=== PATIENT | female | born 1960 | race Caucasian/White ===

== ENCOUNTER 2018-08-09 11:49 | Emergency (ER) | payer BC ==
[~2018-08-09] VITALS: Ht 165.1 cm; Wt 80.3 kg
[~2018-08-09 11:49] MED LIST: ADULT LOW DOSE81 MG PO; CYMBALTA30 MG PO; FUROSEMIDE20 MG PO; HYDROCODON-ACE1 EA15 PO; MIRALAX PO; PREVACID15 M1 PO; STOOL SOFTENER100 M1 PO
--- OUTSIDE RECORDS SUMMARY | 2018-08-09 11:53 | XMS REPORT | Summary of Care ---
Author Author [facility] Address [address] [place] [address] Phone Unavailable Care Team Providers Care Overhead Crane Inspector Name Role Phone PASTORA Lima, RADHA Unavailable Unavailable ALBERT Stephens, DODIE Unavailable Yandel BRIONES MD [place], AGATHA GAMBINO Unavailable Unavailable LIZBET Stephens, ERICA Unavailable Unavailable ANSELMO Stephens, AGATHA Humphries Unavailable Unavailable Unavailable Functional Status Name Dates Details Functional status health issues are not documented Status: Name Dates Details Cognitive status health issues are not documented Status: Problems Name Dates Details Excessive thirst (783.5, R63.1) Status: Active Gastric ulcer (531.90, K25.9) Status: Active Irritable bowel syndrome (564.1, K58.9) Status: Active Neuritis (729.2, M79.2) Status: Active Dysfunction of Eustachian tube, unspecified laterality (381.81, H69.80) Status: Active Elevated liver enzymes (790.5, R74.8) Status: Active Allergic rhinitis (477.9, J30.9) Status: Active Knee pain (719.46, M25.569) Status: Active Influenza vaccine needed (V04.81, Z23) Status: Active It band syndrome, right (728.89, M76.31) Status: Active Primary osteoarthritis of right knee (715.16, M17.11) Status: Active Hematuria (599.70, R31.9) Status: Active Tear of medial meniscus of knee, right, initial encounter Status: Active Radiculitis, thoracic (724.4, M54.14) Status: Active Need for influenza vaccination (V04.81, Z23) Status: Active Fatty infiltration of liver (571.8, K76.0) Status: Active Mild persistent extrinsic asthma with exacerbation (493.02, J45.31) Status: Active Common cold (460, J00) Status: Active Chest pain (786.50, R07.9) Status: Active Plantar fasciitis of left foot (728.71, M72.2) Status: Active Allergic rhinitis, seasonal (477.9, J30.2) Status: Active Asthma with bronchitis (493.90, J45.909) Status: Active Essential (primary) hypertension (401.9, I10) Status: Active BMI 39.0-39.9,adult (V85.39, Z68.39) Status: Active Tachycardia (785.0, R00.0) Status: Active Obstructive sleep apnea on CPAP (327.23, G47.33) Status: Active Daytime hypersomnia (780.54, G47.19) Status: Active Recurrent UTI (599.0, N39.0) Status: Active Other tear of medial meniscus, current injury, left knee, initial encounter (836.0, S83.242A) Status: Active Complex tear of lateral meniscus, current injury, left knee, initial encounter (836.1, S83.272A) Status: Active Recurrent low back pain (724.2, M54.5) Status: Active Symptoms of upper respiratory infection (URI) (786.09, R09.89) Status: Active Medications Name Dates Details Stool Softener TABS TWICE DAILY Active Hydrocodone-Ibuprofen 7.5-200 MG Oral Tablet TAKE 1 TABLET EVERY 4 TO 6 HOURS NEEDED FOR PAIN. * Refills: 0 * Start : 30-Nov-2016 Active Bariatric Fusion CHEW BARIATRIC MULTI VITAMIIN DAILY * Refills: 0 Active Vitamin B-12 1000 MCG Oral Tablet TAKE 1 TABLET DAILY * Refills: 0 Active Iron TABS 500 MG DIALY * Refills: 0 Active Azithromycin 250 MG Oral Tablet TAKE 2 TABLETS ON DAY 1 THEN TAKE 1 TABLET A DAY FOR 4 DAYS. * Quantity: 6 Refills: 0 RADHA GUILLORY N.P. * Start : 03-Jul-2017 Active Vitamin D3 1000 UNIT Oral Capsule TAKE DIRECTED. * Refills: 0 * Start : 30-Nov-2016 Active [place] Thyroid 60 MG Oral Tablet TAKE 1 TABLET DAILY. * Refills: 0 Active Lyrica 50 MG Oral Capsule TAKE 1 CAPSULE DAILY. * Refills: 0 DODIE PRICE M.D. * Start : 24-Jan-2016 Active Pramipexole Dihydrochloride 0.25 MG Oral Tablet TAKE 2 TABLET BEDTIME * Refills: 0 Active Cymbalta 30 MG Oral Capsule Delayed Release Particles TAKE 1 CAPSULE DAILY. * Refills: 0 Active Allergies and Adverse Reactions Name Dates Details Bentyl CAPS (Allergy) Status: Active Keflex TABS (Allergy) Status: Active Penicillins (Allergy) Status: Active TETANUS (Allergy) Status: Active Adhesive Tape (Allergy) Status: Active Past Medical History Name Dates Details History of degenerative disc disease (V13.59, Z87.39) Status: Resolved History of edema (V13.89, Z87.898) Status: Resolved History of High blood pressure (401.9, I10) Status: Resolved History of Menstrual migraine with status migrainosus, not intractable (346.42, G43.821) Status: Resolved History of Migraine (346.90, G43.909) Status: Resolved History of neuropathy (V12.49, Z86.69) Status: Resolved Procedures Procedure Dates Details History of Tonsillectomy With Adenoidectomy Completed History of Appendectomy Completed History of Hysterectomy Completed History of Cholecystectomy Completed History of knee surgery Completed History of sleeve gastrectomy Completed 10-Apr-2017 Immunization Name Dates Details Fluzone INJ Lot #: [id number] on: 14-Apr-2015 Fluzone Quadrivalent 0.5 ML Intramuscular Suspension Lot #: [id number] on: 24-Jan-2016 Family History Name Dates Details Family history of Ovarian Cancer (V16.41) Status: Active Social History Name Dates Details - Status: Name Dates Details Former smoker Vital Signs Date Test Result Details No Known Vitals to report Results Date Description Value Details Results not documented Plan of Care Name Dates Details Planned Observations Planned Goals not documented Instructions Name Dates Details Instructions not documented Encounters Appointment; CARLA WILSON M.D. Encounter Diagnosis: Problem not documented On: 12-Aug-2015 9:45 Appointment; CARLA WILSON M.D. Encounter Diagnosis: Problem not documented On: 19-Aug-2015 11:30 Appointment; CARLA WILSON M.D. Encounter Diagnosis: Problem not documented On: 25-Aug-2015 9:00 Appointment; CARLA WILSON M.D. Encounter Diagnosis: Problem not documented On: 31-Aug-2015 13:00 Appointment; CARLA WILSON M.D. Encounter Diagnosis: Problem not documented On: 07-Sep-2015 13:15 Appointment; ERIC BOWEN P.A. Encounter Diagnosis: Problem not documented On: 14-Sep-2015 16:00 Appointment; CARLA WILSON M.D. Encounter Diagnosis: Problem not documented On: 21-Sep-2015 13:15 Appointment; CARLA WILSON M.D. Encounter Diagnosis: Problem not documented On: 19-Oct-2015 13:15 Appointment; ERIC OBWEN P.A. Encounter Diagnosis: Problem not documented On: 30-Nov-2015 15:15 Appointment; CARLA WILSON M.D. Encounter Diagnosis: Problem not documented On: 14-Dec-2015 15:30 Appointment; DODIE PRICE M.D. Encounter Diagnosis: Problem not documented On: 23-Dec-2015 14:00 Appointment; SHELBY DAI NP Encounter Diagnosis: Problem not documented On: 29-Dec-2015 16:30 Appointment; DODIE PRICE M.D. Encounter Diagnosis: Problem not documented On: 24-Jan-2016 13:30 Appointment; CARLA WILSON M.D. Encounter Diagnosis: Problem not documented On: 15-Feb-2016 13:00 Appointment; CARLA WILSON M.D. Encounter Diagnosis: Problem not documented On: 28-Feb-2016 7:00 Appointment; CARLA WILSON M.D. Encounter Diagnosis: Problem not documented On: 07-Mar-2016 9:15 Appointment; CARLA WILSON M.D. Encounter Diagnosis: Problem not documented On: 14-Mar-2016 9:30 Appointment; CARLA WILSON M.D. Encounter Diagnosis: Problem not documented On: 11-Apr-2016 9:45 Appointment; DODIE PRICE M.D. Encounter Diagnosis: Problem not documented On: 24-Apr-2016 13:45 Appointment; DODIE PRICE M.D. Encounter Diagnosis: Problem not documented On: 10-May-2016 11:30 Appointment; CARLA WILSON M.D. Encounter Diagnosis: Problem not documented On: 11-Jul-2016 9:45 Appointment; RADHA GUILLORY NP Encounter Diagnosis: Problem not documented On: 11-Aug-2016 12:30 Appointment; DODIE PRICE M.D. Encounter Diagnosis: Problem not documented On: 30-Oct-2016 16:00 Appointment; MCKENZIE ORELLANA M.D. Encounter Diagnosis: Problem not documented On: 30-Nov-2016 14:45 Appointment; RADHA GUILLORY NP Encounter Diagnosis: Problem not documented On: 03-Jul-2017 10:45
[2018-08-09] MEDS ORDERED: SODIUM CHLORIDE 0.9% 1000ML 1,000 ML IV STA (12:22)
[2018-08-09] MEDS ORDERED: ONDANSETRON HCL INJ 2MG/ML 2ML 2 MG/ML VIAL IV STA (12:22)
[2018-08-09] MEDS ORDERED: MORPHINE SULFATE INJ 4 MG/ML INJ 1ML IV STA (12:22)
--- NOTE | 2018-08-09 13:28 | NUR ---
1320- 20G IV LT AC 1LNS WO started Zofran 4mg IV given, Morphine pulled and will give once patinet in room Blood and Urine to lab
[2018-08-09 13:36] LABS: BASOPHILS # (AUTO) 0.1 (0.0-0.1); BASOPHILS % 0.9 % (0.0-1.0); EOSINOPHILS # (AUTO) 0.1 (0.0-0.4); EOSINOPHILS % 1.7 % (0.0-6.0); HEMATOCRIT 41.2 % (34.2-44.1); HEMOGLOBIN 13.6 g/dL (12.0-16.0); LYMPHOCYTES # (AUTO) 1.9 (1.0-3.2); LYMPHOCYTES % 29.3 % (18.0-39.1); MEAN CORPUSCULAR HEMOGLOBIN 29.1 pg (28-32); MEAN CORPUSCULAR VOLUME 88.2 fL (81-99); MONOCYTES # (AUTO) 0.4 (0.2-0.8); MONOCYTES % 6.5 % (4.4-11.3); NEUTROPHILS # (AUTO) 3.9 (2.1-6.9); NEUTROPHILS % 61.3 % (38.7-80.0); PLATELET COUNT 232 x10e3/uL (140-360); RED BLOOD COUNT 4.67 x10e6/uL (3.6-5.1); RED CELL DISTRIBUTION WIDTH 12.8 % (11.7-14.4)
[2018-08-09 13:46] LABS: CLARITY,URINE SL CLOUDY (CLEAR); COLOR,URINE YELLOW (YELLOW); LEUKOCYTE ESTERASE ,URINE TRACE (NEGATIVE); NITRITE,URINE NEGATIVE (NEGATIVE)
[2018-08-09 13:47] LABS: BILIRUBIN,URINE NEGATIVE (NEGATIVE); KETONES,URINE NEGATIVE (NEGATIVE); PROTEIN,URINE DIPSTICK NEGATIVE (NEGATIVE); URINE UROBILINOGEN 0.2 mg/dL (0.2 - 1)
[2018-08-09 13:51] LABS: BACTERIA,URINE MANY /HPF; EPITHELIAL CELLS,URINE MANY /LPF; WBC,URINE (MAN) 0-5 /HPF (0-5)
[2018-08-09 14:09] LABS: ALANINE AMINOTRANSFERASE 21 IU/L (0-55); ALBUMIN 3.7 g/dL (3.5-5.0); ALBUMIN/GLOBULIN RATIO 1.1 (0.8-2.0); ALKALINE PHOSPHATASE 60 IU/L (40-150); ANION GAP 11.4 mmol/L (8-16); BLOOD UREA NITROGEN 16 mg/dL (7-26); BUN/CREATININE RATIO 20 (6-25); CALCIUM 9.5 mg/dL (8.4-10.2); CARBON DIOXIDE 28 mmol/L (22-29); CHLORIDE 105 mmol/L (98-107); CREATININE, SERUM 0.81 mg/dL (0.57-1.11); EST GLOMERULAR FILTRATION RATE > 60 ML/MIN (60-); GLUCOSE 105 mg/dL (74-118); POTASSIUM 4.4 mmol/L (3.5-5.1); SODIUM 140 mmol/L (136-145)
[2018-08-09] MEDS ORDERED: IOPAMIDOL 370 MG/ML 200 ML INFUS..BTL INJ ONE (15:12)
[2018-08-09] MEDS ORDERED: SODIUM CHLORIDE 0.9% 50ML 50 ML ONE (15:12)
--- NOTE | 2018-08-09 15:33 | Diagnostic Imaging Report ---
EXAMINATION: CT of the abdomen and pelvis with contrast. TECHNIQUE: Spiral CT images of the abdomen and pelvis were performed from the lung bases to the lesser trochanters after the intravenous administration of 100 cc of Isovue 370 and the oral administration of water. Coronal and sagittal reformatted images were obtained. COMPARISON: CT abdomen and pelvis 06/18/2008 CLINICAL HISTORY:Right flank and right lower abdominal pain DISCUSSION: ABDOMEN/PELVIS: LOWER THORAX:Unremarkable. HEPATOBILIARY: Decreased attenuation of the hepatic parenchyma compared to the spleen, consistent with steatosis. No focal lesions. Stable mild prominence of the central intrahepatic bile ducts and moderate dilation of the common bile duct, which measures 1.1 cm at the alana hepatis. No radiopaque intraluminal filling defects. GALLBLADDER: Cholecystectomy clips. SPLEEN: No splenomegaly. PANCREAS: No focal masses or ductal dilatation. ADRENALS: No adrenal nodules. KIDNEYS/URETERS: No hydronephrosis, stones, or solid mass lesions. PELVIC ORGANS/BLADDER: Bladder is unremarkable. Uterus is absent. 1.9 cm fluid density lesion in the right ovary. Pelvic phleboliths. PERITONEUM/RETROPERITONEUM: No free air or fluid. LYMPH NODES: No intra-abdominal, retroperitoneal, pelvic or inguinal lymphadenopathy. VESSELS: The celiac trunk,superior and inferior mesenteric and bilateral renal arteries are patent The portal, superior mesenteric and splenic veins are patent. GI TRACT: No bowel dilation or evidence of obstruction. No pericolonic inflammatory changes. Specifically, no fat stranding is noted around the cecum or ascending colon. Postoperative changes in the stomach, with surgical sutures noted along the greater and lesser curvature. BONES AND SOFT TISSUE: No aggressive lytic lesions. Grade 1 anterolisthesis of L4 on L5, with suspected bilateral pars interarticularis defects. Small fat-containing umbilical hernia . Soft tissues are otherwise unremarkable. IMPRESSION: 1. No acute abdominopelvic abnormalities. Specifically, no acute abnormal findings in the right lower quadrant. 2. No renal, ureteral or bladder calculi. 3. Hepatic steatosis. No focal lesions. 4. Stable mild prominence of the central intrahepatic bile ducts and moderate dilation of the common bile duct, likely reflecting post cholecystectomy status. 5. 1.9 cm simple cyst in the right ovary. Signed by: Dr. Jere Negrete M.D. on 08/09/2018 3:30 PM
== END 2018-08-09 17:12 | disposition home or self-care (01) ==
LOC: ER 11:49
DX: N30.00 Acute cystitis without hematuria (principal); N83.291 Other ovarian cyst, right side; I10 Essential (primary) hypertension
CPT/HCPCS: 36415; 74177; 80053; 81001; 85025; 87086; 99284; J2405; J7030; Q9967; J2270

== ENCOUNTER 2020-06-06 15:46 | Emergency (ER) | payer BC ==
[~2020-06-06] VITALS: Ht 165.1 cm; Wt 85.7 kg
== END 2020-06-06 17:10 | disposition home or self-care (01) ==
LOC: ER 17:02
DX: U07.1 COVID-19 (principal); R06.02 Shortness of breath; R07.89 Other chest pain; R05 Cough; G62.9 Polyneuropathy, unspecified; K21.9 Gastro-esophageal reflux disease without esophagitis; Z98.84 Bariatric surgery status
CPT/HCPCS: 93005; 99282

== ENCOUNTER 2020-06-12 11:10 | Emergency (ER) | payer BC ==
[~2020-06-12] VITALS: Ht 165.1 cm; Wt 85.7 kg
== END 2020-06-12 11:36 | disposition home or self-care (01) ==
LOC: ER 11:29
DX: U07.1 COVID-19 (principal); Z88.1 Allergy status to other antibiotic agents; Z88.0 Allergy status to penicillin; Z88.7 Allergy status to serum and vaccine; Z88.8 Allergy status to other drugs, medicaments and biological substances
CPT/HCPCS: 99282

== ENCOUNTER → 2021-02-08 | Day surgery (SDC) | payer BC ==
[~2021-02-08] MED LIST changes: +ACETAMINOPHEN-1 EAC3 PO; +BUPIVACAINE 0.25% 30ML SDV ONE; +CLINDAMYCIN 600MG / 50ML 50 ML IV ONE; +LEVOTHYROXINE50 MCG PO; +LYRICA50 MG PO; +MIRAPEX0.25 MG PO; +MUPIROCIN 2% OINT 22 GM TUBE ONE; +VIT D3 PO
[2021-02-08 08:37] VITALS: BP 136/94
== END | disposition home or self-care (01) ==
LOC: OR 05:45 → EDSTATUS 07:00
PROVIDERS: ATTEND Plastic Surgery
DX: M65.341 Trigger finger, right ring finger (principal); G47.33 Obstructive sleep apnea (adult) (pediatric); J45.909 Unspecified asthma, uncomplicated; E03.9 Hypothyroidism, unspecified; K21.9 Gastro-esophageal reflux disease without esophagitis; K44.9 Diaphragmatic hernia without obstruction or gangrene; Z88.1 Allergy status to other antibiotic agents; Z88.0 Allergy status to penicillin; Z88.7 Allergy status to serum and vaccine; Z01.810 Encounter for preprocedural cardiovascular examination; Z01.812 Encounter for preprocedural laboratory examination; Z20.822 Contact with and (suspected) exposure to COVID-19; Z86.16 Personal history of COVID-19
CPT/HCPCS: 26055; 93005; U0002

== ENCOUNTER 2021-09-22 07:00 | Observation (INO) | payer BC ==
[2021-09-20 10:13] LABS: BASOPHILS # (AUTO) 0.1 (0.0-0.1); BASOPHILS % 1.2 % (0.0-1.0); EOSINOPHILS # (AUTO) 0.1 (0.0-0.4); EOSINOPHILS % 1.4 % (0.0-6.0); HEMOGLOBIN 13.6 g/dL (12.0-16.0); LYMPHOCYTES # (AUTO) 1.5 (1.0-3.2); LYMPHOCYTES % 30.2 % (18.0-39.1); MEAN CORPUSCULAR HEMOGLOBIN 29.8 pg (28-32); MEAN CORPUSCULAR HGB CONC 32.4 g/dL (31-35); MEAN CORPUSCULAR VOLUME 92.1 fL (81-99); MONOCYTES # (AUTO) 0.4 (0.2-0.8); MONOCYTES % 8.9 % (4.4-11.3); NEUTROPHILS # (AUTO) 2.9 (2.1-6.9); NEUTROPHILS % 58.1 % (38.7-80.0); PLATELET COUNT 202 x10e3/uL (140-360); RED BLOOD COUNT 4.56 x10e6/uL (3.6-5.1); RED CELL DISTRIBUTION WIDTH 13.1 % (11.7-14.4)
[2021-09-20 10:48] LABS: ANION GAP 8.1 mmol/L (8-16); CREATININE, SERUM 0.75 mg/dL (0.57-1.11); POTASSIUM 4.1 mmol/L (3.5-5.1)
[2021-09-20 10:50] LABS: INR 0.96; PROTHROMBIN TIME 13.7 seconds (11.9-14.5)
[~2021-09-22] VITALS: Ht 165.1 cm; Wt 98.0 kg
[~2021-09-22 07:00] MED LIST changes: -BUPIVACAINE 0.25% 30ML SDV ONE; -CLINDAMYCIN 600MG / 50ML 50 ML IV ONE; +LIDOCAINE 1% W/EPINEPHRINE 20 ML VIAL ONE; -MUPIROCIN 2% OINT 22 GM TUBE ONE; +NEURONTIN300 MG PO; +SODIUM CHLORIDE 0.9% 250ML 250 ML ONE; +THROMBIN FOR SOLN 5,000 UNIT VIAL ONE; +Vancomycin IV 1 GM VIAL ONE
[2021-09-22] MEDS ORDERED: ACETAMINOPHEN 1000 MG/100 ML 100 ML IV ONE (08:29)
[2021-09-22] MEDS ORDERED: HYDROCODON-ACE1 EA12 PO (09:12)
[2021-09-22] MEDS ORDERED: MAGNESIUM/ALUMINUM/SIMETHICONE 30 ML UDC PO PRN (09:15)
[2021-09-22] MEDS ORDERED: MORPHINE SULFATE 5 MG/ML VIAL IM PRN (09:15)
[2021-09-22] MEDS ORDERED: ONDANSETRON HCL INJ 2MG/ML 2ML 2 MG/ML VIAL IV PRN (09:15)
[2021-09-22] MEDS ORDERED: ACETAMINOPHEN 325 MG TAB PO PRN (09:15)
[2021-09-22] MEDS ORDERED: HYDROMORPHONE 2MG/ML 2 MG/ML ML IV PRN (09:15)
[2021-09-22] MEDS ORDERED: NON-FORMULARY MEDICATION (Lansoprazole (Prevacid) 15 MG) PO SCH (09:15)
[2021-09-22] MEDS ORDERED: ZOLPIDEM TARTRATE 5 MG TAB PO PRN (09:15)
[2021-09-22] MEDS ORDERED: PROMETHAZINE HCL (IM) 25 MG/ML VIAL IM PRN (09:15)
[2021-09-22] MEDS ORDERED: FENTANYL CITRATE/PF 100MCG/2 ML INJ ONE ×2 (09:28→12:56)
[2021-09-22] MEDS ORDERED: HYDROMORPHONE 1MG/1ML INJ ONE (10:25)
[2021-09-22] MEDS ORDERED: PANTOPRAZOLE SOD 40 MG TABEC PO PRN (11:00)
[2021-09-22] MEDS: LACTATED RINGER'S 1,000 ML IV SCH ×2 (11:35→17:35)
[2021-09-22 11:37] VITALS: BP 143/75
[2021-09-22] MEDS ORDERED: ONDANSETRON HCL INJ 2MG/ML 2ML 2 MG/ML VIAL ONE (12:18)
[2021-09-22] MEDS ORDERED: DESFLURANE 240 ML BTL INH ONE (12:18)
[2021-09-22] MEDS ORDERED: ROCURONIUM BROMIDE 10 MG/ML 5ML VIAL IV ONE (12:18)
[2021-09-22] MEDS ORDERED: NEOSTIGMINE 1 MG/ML 10ML VIAL ONE (12:18)
[2021-09-22] MEDS ORDERED: DEXAMETHASONE SOD PHOS INJ 4 MG/ML SDV ONE (12:18)
[2021-09-22] MEDS ORDERED: POVIDONE IODINE 0.05% 0.05 % ML PO ONE (12:18)
[2021-09-22] MEDS ORDERED: GLYCOPYRROLATE INJ 0.2 MG/ML VIAL ONE (12:18)
[2021-09-22] MEDS ORDERED: PROPOFOL IV EMULSION 10 MG/ML 20 ML VIAL ONE (12:18)
[2021-09-22] MEDS ORDERED: LIDOCAINE HCL 2% LOCAL INJ 5 ML SDV VIAL INJ ONE (12:18)
[2021-09-22] MEDS ORDERED: MIDAZOLAM HCL 2 MG/2 ML VIAL ONE (12:56)
[2021-09-22] MEDS ORDERED: Morphine 10mg syringe 10 MG/ML INJ ONE (12:56)
[2021-09-22] MEDS: OXYCODONE/ACETAMINOPHEN 5-325 1 EACH TABLET PO PRN ×2 (14:35→20:14)
[2021-09-22] MEDS: CARISOPRODOL 350 MG TAB PO PRN ×2 (14:35→20:14)
[2021-09-22 16:09] VITALS: BP 125/76
[2021-09-22] MEDS ORDERED: DOCUSATE SODIUM 100 MG PO SCH (17:00)
[2021-09-22] MEDS: DOCUSATE SODIUM 100 MG CAP PO SCH (17:19)
[2021-09-22] MEDS: Vancomycin IV 1 GM in SODIUM CHLORIDE 0.9% 250ML 250 ML IV SCH (17:19)
[2021-09-22 20:00] VITALS: BP 125/65
[2021-09-22 20:07] VITALS: BP 125/65
[2021-09-22] MEDS ORDERED: PRAMIPEXOLE DIHYDROCHLORIDE 0.25 MG TAB PO SCH (21:00)
[2021-09-23] MEDS: LACTATED RINGER'S 1,000 ML IV SCH (01:55)
[2021-09-23] MEDS: OXYCODONE/ACETAMINOPHEN 5-325 1 EACH TABLET PO PRN ×2 (02:10→06:08)
[2021-09-23] MEDS: CARISOPRODOL 350 MG TAB PO PRN ×2 (02:10→06:08)
[2021-09-23] MEDS: Vancomycin IV 1 GM in SODIUM CHLORIDE 0.9% 250ML 250 ML IV SCH (05:06)
[2021-09-23 05:37] VITALS: BP 115/82
[2021-09-23] MEDS ORDERED: LEVOTHYROXINE SODIUM 50 MCG TAB PO SCH (06:00)
[2021-09-23 08:00] VITALS: BP 114/63
[2021-09-23 08:10] VITALS: BP 114/62
[2021-09-23] MEDS ORDERED: GABAPENTIN 300 MG CAP PO SCH (09:00)
[2021-09-23] MEDS ORDERED: PREGABALIN 50 MG CAP PO SCH (09:00)
[2021-09-23] MEDS: DOCUSATE SODIUM 100 MG CAP PO SCH (09:07)
== END 2021-09-23 10:38 | disposition home or self-care (01) ==
LOC: OR 07:00 → PACU V 09:11 → MED/SURG 10:36
PROVIDERS: ADMIT Neurological Surgery; ATTEND Neurological Surgery
DX: M50.120 Mid-cervical disc disorder, unspecified level (principal); Z01.818 Encounter for other preprocedural examination; G47.33 Obstructive sleep apnea (adult) (pediatric); J45.909 Unspecified asthma, uncomplicated; E03.9 Hypothyroidism, unspecified; Z88.0 Allergy status to penicillin; M19.90 Unspecified osteoarthritis, unspecified site; Z88.1 Allergy status to other antibiotic agents; Z88.7 Allergy status to serum and vaccine; Z88.8 Allergy status to other drugs, medicaments and biological substances; Z20.822 Contact with and (suspected) exposure to COVID-19
CPT/HCPCS: 22551; 22552; 22845; 36415; 71046; 72040; 76000; 80048; 85025; 85610; 85730; 86850; 86900; 88304; 88311; 93005; C1713 ×6; C1763; G0378 ×2; J0131; J1100; J1170; J2001; J2250; J2270; J2405; J2704; J2710; J3010; J3370 ×2; J7050 ×2; J7121; U0002

== ENCOUNTER → 2021-10-20 | Outpatient (CLI) | payer BC ==
[~2021-10-20] MED LIST changes: +HYDROCODON-ACE1 EA12 PO; -LIDOCAINE 1% W/EPINEPHRINE 20 ML VIAL ONE; -SODIUM CHLORIDE 0.9% 250ML 250 ML ONE; -THROMBIN FOR SOLN 5,000 UNIT VIAL ONE; -Vancomycin IV 1 GM VIAL ONE
== END ==
LOC: RAD 09:53
PROVIDERS: ATTEND Neurological Surgery
DX: M50.20 Other cervical disc displacement, unspecified cervical region (principal); M43.22 Fusion of spine, cervical region
CPT/HCPCS: 72050